=== PATIENT | female | born 1965 | race Caucasian/White ===

== ENCOUNTER 2018-12-14 23:01 | Inpatient (IN) | payer OTHER ==
[2018-12-15 00:07] LABS: ADD MAN DIFF? NO
[2018-12-15 00:09] LABS: WHITE BLOOD COUNT 17.3 10^3/ul (4.8-10.8)
[2018-12-15 00:09] LABS: ABNORMAL IP MESSAGE 1; BASOPHILS % 0.1 % (0.0-2.0); EOSINOPHILS # 0.1 10^3/ul (0.0-0.5); EOSINOPHILS % 0.4 % (0.0-7.0); HEMATOCRIT 14.3 % (37.0-47.0); LYMPHOCYTES # 1.5 10^3/ul (0.8-2.9); LYMPHOCYTES % 8.8 % (15.0-51.0); MEAN CORPUSCULAR HEMOGLOBIN 18.1 pg (29.0-33.0); MEAN CORPUSCULAR HGB CONC 25.9 g/dl (32.0-37.0); MEAN CORPUSCULAR VOLUME 70.1 fl (82.0-101.0); MEAN PLATELET VOLUME 8.2 fl (7.4-10.4); MONOCYTES % 5.6 % (0.0-11.0); NEUTROPHIL # 14.6 10^3/ul (1.6-7.5); NEUTROPHILS % 84.5 % (39.0-77.0); NUCLEATED RED BLOOD CELLS # 0.4 10^3/ul (0.0-0.0); NUCLEATED RED BLOOD CELLS% 2.3 /100WBC (0.0-0.0); PLATELET COUNT 821 10^3/UL (140-415); RED BLOOD COUNT 2.04 10^6/ul (4.20-5.40); RED CELL DISTRIBUTION WIDTH 21.2 % (11.5-14.5)
[2018-12-15] MEDS: ONDANSETRON 4 MG INJ IV (00:10)
[2018-12-15] MEDS: SOD CHLORIDE 0.9% 1,000 ML IV ×2 (00:11→04:38)
[2018-12-15] MEDS: morphine 4 MG/ML VIAL IV ×4 (00:11→21:21)
[2018-12-15 00:19] LABS: HEMOGLOBIN 3.7 g/dl (12.0-16.0); POSITIVE DIFF @See below
[2018-12-15 00:22] LABS: ADD UMIC YES; UR AMORPHOUS CRYSTAL FEW /HPF (NONE SEEN); UR ASCORBIC ACID NEGATIVE (NEGATIVE); UR BACTERIA FEW /HPF (NONE SEEN); UR BILIRUBIN (Dip) NEGATIVE (NEGATIVE); UR BLOOD (Dip) 3+ mg/dL (NEGATIVE); UR CLARITY SLIGHTLY CLOUDY (CLEAR); UR COLOR YELLOW (YELLOW); UR GLUCOSE (Dip) NEGATIVE (NEGATIVE); UR KETONES (Dip) NEGATIVE (NEGATIVE); UR LEUKOCYTE ESTERASE (Dip) TRACE Leu/ul (NEGATIVE); UR MUCUS FEW /HPF (NONE SEEN); UR NITRITE (Dip) NEGATIVE (NEGATIVE); UR RBC > 182 /HPF (0-5); UR SPECIFIC GRAVITY (Dip) 1.017 (1.003-1.030); UR SQUAMOUS EPITHELIAL CELL FEW /HPF (FEW); UR TOTAL PROTEIN (Dip) 1+ mg/dl (NEGATIVE); UR TRANSITIONAL EPI CELL FEW /HPF (NONE SEEN); UR UROBILINOGEN (Dip) 1+ mg/dL (NEGATIVE); UR WBC 7 /HPF (0-5)
[2018-12-15 00:26] LABS: ALANINE AMINOTRANSFERASE 19 IU/L (13-69); ALBUMIN 3.2 g/dl (3.3-4.9); ALBUMIN/GLOBULIN RATIO 0.71; ALKALINE PHOSPHATASE 188 IU/L (42-121); ANION GAP 14 (5-13); ASPARTATE AMINO TRANSFERASE 27 IU/L (15-46); BLOOD UREA NITROGEN 16 mg/dl (7-20); CALCIUM 8.5 mg/dl (8.4-10.2); CARBON DIOXIDE 25 mmol/L (21-31); CHLORIDE 94 mmol/L (97-110); Estimated GFR 47 mL/min (>60); GLUCOSE 154 mg/dl (70-220); LIPASE 38 U/L (23-300); POTASSIUM 3.7 mmol/L (3.5-5.1); SODIUM 133 mmol/L (135-144); TOTAL PROTEIN 7.7 g/dl (6.1-8.1)
[2018-12-15] MEDS: PIPER-TAZO 3.375 GM IV (PMX) 100 ML IVPB ×6 (02:26→23:10)
[2018-12-15] MEDS ORDERED: METOCLOPRAMIDE 10 MG INJ IV (02:30)
[2018-12-15] MEDS ORDERED: NACL 0.9% 3 ML SYG IV (02:30)
[2018-12-15] MEDS ORDERED: ONDANSETRON 4 MG INJ IV (02:30)
[2018-12-15 03:17] LABS: IRON 11 ug/dl (35-150)
[2018-12-15 03:27] LABS: % IRON SATURATION 4 % SAT (22-52); TOTAL IRON BINDING CAPACITY 268 ug/dl (241-421)
[2018-12-15 04:16] LABS: CARCINOEMBRYONIC ANTIGEN 0.8 ng/ml (0.0-5.0)
[2018-12-15 04:17] LABS: FERRITIN 55.3 ng/ml (11.1-264.0)
[2018-12-15 04:20] LABS: CANCER ANTIGEN 19-9 59.6 U/ml (0.0-37.0)
[2018-12-15 04:21] LABS: ALPHA FETOPROTEIN 1.26 IU/L (0.00-7.21)
[2018-12-15] MEDS: morphine 2 MG INJ IV (04:23)
[2018-12-15 05:38] LABS: ADD MAN DIFF? NO
[2018-12-15 05:52] LABS: ABNORMAL IP MESSAGE 1; BASOPHILS % 0.2 % (0.0-2.0); EOSINOPHILS % 0.1 % (0.0-7.0); HEMATOCRIT 20.4 % (37.0-47.0); LYMPHOCYTES # 1.6 10^3/ul (0.8-2.9); LYMPHOCYTES % 9.6 % (15.0-51.0); MEAN CORPUSCULAR HEMOGLOBIN 21.6 pg (29.0-33.0); MEAN CORPUSCULAR HGB CONC 28.4 g/dl (32.0-37.0); MEAN CORPUSCULAR VOLUME 75.8 fl (82.0-101.0); MEAN PLATELET VOLUME 8.4 fl (7.4-10.4); MONOCYTE # 1.2 10^3/ul (0.3-0.9); MONOCYTES % 7.2 % (0.0-11.0); NEUTROPHIL # 13.6 10^3/ul (1.6-7.5); NEUTROPHILS % 82.3 % (39.0-77.0); NUCLEATED RED BLOOD CELLS # 0.2 10^3/ul (0.0-0.0); PLATELET COUNT 776 10^3/UL (140-415); RED BLOOD COUNT 2.69 10^6/ul (4.20-5.40); RED CELL DISTRIBUTION WIDTH 21.7 % (11.5-14.5); RETICULOCYTE COUNT # 0.058 X10^6 (0.020-0.110); RETICULOCYTE COUNT % 2.2 % (0.5-1.5); RETICULOCYTE RBC 2.69
[2018-12-15 05:52] LABS: WHITE BLOOD COUNT 16.5 10^3/ul (4.8-10.8)
[2018-12-15 05:54] LABS: POSITIVE DIFF @See below
[2018-12-15 05:56] LABS: HEMOGLOBIN 5.8 g/dl (12.0-16.0)
[2018-12-15 06:09] LABS: LACTATE DEHYDROGENASE 437 IU/L (313-618)
[2018-12-15 06:24] LABS: IMMEDIATE SPIN CROSSMATCH 1 5
[2018-12-15] MEDS: PANTOPRAZOLE 40 MG INJ IV (06:41)
[2018-12-15] MEDS: FUROSEMIDE 20 MG INJ IV (08:31)
[2018-12-15 09:34] LABS: HEMOGLOBIN 7.1 g/dl (12.0-16.0)
[2018-12-15 09:34] LABS: HEMATOCRIT 24.1 % (37.0-47.0)
[2018-12-15 09:35] LABS: ANISOCYTOSIS 2+ (0-0); GIANT THROMBO% (M) 1 % (0-0); HYPOCHROMASIA 3+ (0-0); LYMPHOCYTES #M 0.6 10^3/ul (0.8-2.9); LYMPHOCYTES % (M) 4 % (15-51); MICROCYTOSIS 2+ (0-0); MONOCYTE #M 1.1 10^3/ul (0.3-0.9); MONOCYTES % (M) 7 % (0-11); PLATELET ESTIMATE INCREASED; POIKILOCYTOSIS 1+ (0-0); POLYCHROMASIA 3+ (0-0); SEGMENTED NEUTROPHILS (M) % 89 % (39-77); TARGET CELLS 1+ (0-0)
[2018-12-15] MEDS: IOHEXOL 14.3 MG(I)/ML (ADULT) BTL PO (09:51)
[2018-12-15 09:59] LABS: LACTATE DEHYDROGENASE 459 IU/L (313-618)
[2018-12-15] MEDS: IODIXANOL LOCM 100 ML BTL (12:15)
[2018-12-15] MEDS: SOD CHLORIDE 0.9% 100 ML (12:15)
[2018-12-15] MEDS: SOD FERRIC GLUC COMPLX 125 MG in SOD CHLORIDE 0.9% 100 ML IVPB (13:39)
[2018-12-15] MEDS: DEXTROSE 5%-0.9% NACL 1,000 ML IV (14:09)
[2018-12-15 14:35] LABS: PROTIME 14.3 Sec (11.9-14.9); PT RATIO 1.1
[2018-12-15 14:36] LABS: PARTIAL THROMBOPLASTIN TIME 42.6 Sec (23.0-35.0)
[2018-12-15 14:45] LABS: HEMATOCRIT 28.4 % (37.0-47.0); HEMOGLOBIN 8.6 g/dl (12.0-16.0)
[2018-12-15] MEDS: ACETAMINOPHEN 325 MG TAB PO (19:43)
[2018-12-15 20:36] LABS: ADD MAN DIFF? NO
[2018-12-15 20:37] LABS: BASOPHIL # 0.1 10^3/ul (0.0-0.1); BASOPHILS % 0.4 % (0.0-2.0); EOSINOPHILS # 0.1 10^3/ul (0.0-0.5); EOSINOPHILS % 1.1 % (0.0-7.0); HEMATOCRIT 28.1 % (37.0-47.0); HEMOGLOBIN 8.6 g/dl (12.0-16.0); LYMPHOCYTES # 1.5 10^3/ul (0.8-2.9); LYMPHOCYTES % 11.2 % (15.0-51.0); MEAN CORPUSCULAR HEMOGLOBIN 23.8 pg (29.0-33.0); MEAN CORPUSCULAR HGB CONC 30.6 g/dl (32.0-37.0); MEAN CORPUSCULAR VOLUME 77.8 fl (82.0-101.0); MEAN PLATELET VOLUME 8.1 fl (7.4-10.4); MONOCYTE # 1.2 10^3/ul (0.3-0.9); NEUTROPHIL # 10.3 10^3/ul (1.6-7.5); NEUTROPHILS % 77.5 % (39.0-77.0); NUCLEATED RED BLOOD CELLS # 0.2 10^3/ul (0.0-0.0); NUCLEATED RED BLOOD CELLS% 1.8 /100WBC (0.0-0.0); PLATELET COUNT 489 10^3/UL (140-415); RED BLOOD COUNT 3.61 10^6/ul (4.20-5.40); RED CELL DISTRIBUTION WIDTH 20.7 % (11.5-14.5)
[2018-12-15 20:37] LABS: WHITE BLOOD COUNT 13.3 10^3/ul (4.8-10.8)
[2018-12-16 01:32] LABS: PROTEIN, TOTAL 6.6 g/dL (6.1-8.1)
[2018-12-16] MEDS: morphine 4 MG/ML VIAL IV ×4 (04:44→17:53)
[2018-12-16 05:03] LABS: ADD MAN DIFF? NO
[2018-12-16 05:11] LABS: WHITE BLOOD COUNT 13.9 10^3/ul (4.8-10.8)
[2018-12-16 05:11] LABS: BASOPHIL # 0.1 10^3/ul (0.0-0.1); BASOPHILS % 0.5 % (0.0-2.0); EOSINOPHILS # 0.2 10^3/ul (0.0-0.5); EOSINOPHILS % 1.3 % (0.0-7.0); HEMATOCRIT 29.6 % (37.0-47.0); HEMOGLOBIN 9.1 g/dl (12.0-16.0); LYMPHOCYTES # 1.2 10^3/ul (0.8-2.9); LYMPHOCYTES % 8.7 % (15.0-51.0); MEAN CORPUSCULAR HEMOGLOBIN 24.1 pg (29.0-33.0); MEAN CORPUSCULAR HGB CONC 30.7 g/dl (32.0-37.0); MEAN CORPUSCULAR VOLUME 78.5 fl (82.0-101.0); MEAN PLATELET VOLUME 8.4 fl (7.4-10.4); MONOCYTE # 1.2 10^3/ul (0.3-0.9); MONOCYTES % 8.3 % (0.0-11.0); NEUTROPHIL # 11.1 10^3/ul (1.6-7.5); NEUTROPHILS % 80.1 % (39.0-77.0); NUCLEATED RED BLOOD CELLS # 0.2 10^3/ul (0.0-0.0); NUCLEATED RED BLOOD CELLS% 1.2 /100WBC (0.0-0.0); PLATELET COUNT 486 10^3/UL (140-415); RED BLOOD COUNT 3.77 10^6/ul (4.20-5.40); RED CELL DISTRIBUTION WIDTH 21.2 % (11.5-14.5)
[2018-12-16] MEDS: PANTOPRAZOLE 40 MG INJ IV (05:13)
[2018-12-16] MEDS: PIPER-TAZO 3.375 GM IV (PMX) 100 ML IVPB ×3 (05:13→17:42)
[2018-12-16 05:21] LABS: HEMOGLOBIN A1C 5.5 % (0-5.9)
[2018-12-16 05:34] LABS: ALANINE AMINOTRANSFERASE 23 IU/L (13-69); ALBUMIN 2.8 g/dl (3.3-4.9); ALKALINE PHOSPHATASE 157 IU/L (42-121); ANION GAP 12 (5-13); ASPARTATE AMINO TRANSFERASE 18 IU/L (15-46); BILIRUBIN,INDIRECT 0.3 mg/dl (0-1.1); BILIRUBIN,TOTAL 0.3 mg/dl (0.2-1.3); BLOOD UREA NITROGEN 14 mg/dl (7-20); CALCIUM 7.7 mg/dl (8.4-10.2); CARBON DIOXIDE 28 mmol/L (21-31); CHLORIDE 99 mmol/L (97-110); CHOL/HDL RATIO 6.4 RATIO; CHOLESTEROL 110 mg/dl (100-200); CREATININE 1.07 mg/dl (0.44-1.00); Estimated GFR 53 mL/min (>60); GLUCOSE 103 mg/dl (70-220); HDL CHOLESTEROL 17 mg/dl (37-92); LDL CHOLESTEROL,CALCULATED 70 mg/dl; MAGNESIUM 2.1 mg/dl (1.7-2.5); POTASSIUM 3.2 mmol/L (3.5-5.1); SODIUM 139 mmol/L (135-144); TOTAL PROTEIN 6.8 g/dl (6.1-8.1); TRIGLYCERIDES 117 mg/dl (0-149)
[2018-12-16] MEDS: DEXTROSE 5%-0.9% NACL 1,000 ML IV ×3 (06:40→16:34)
[2018-12-16] MEDS: POTASSIUM CHLORIDE 100 ML IVPB ×2 (08:15→14:47)
[2018-12-16] MEDS: SOD FERRIC GLUC COMPLX 125 MG in SOD CHLORIDE 0.9% 100 ML IVPB (13:17)
[2018-12-16 13:56] LABS: BETA-2 MICROGLOBULIN 5.64 mg/L (< OR = 2.51)
[2018-12-16 15:32] LABS: ALBUMIN 2.2 g/dL (3.8-4.8); ALPHA-1-GLOBULINS 0.7 g/dL (0.2-0.3); BETA 2 GLOBULINS 0.5 g/dL (0.2-0.5); BETA GLOBULINS 0.5 g/dL (0.4-0.6); GAMMA GLOBULINS 1.7 g/dL (0.8-1.7)
[2018-12-16] MEDS: LIDOCAINE 1% (MPF) 5 ML VIAL SC ×2 (15:45)
[2018-12-16] MEDS: HYDROmorphONE 0.5 MG/0.5 ML SYG IV (20:14)
[2018-12-17] MEDS: PIPER-TAZO 3.375 GM IV (PMX) 100 ML IVPB ×5 (00:22→23:29)
[2018-12-17] MEDS: HYDROmorphONE 0.5 MG/0.5 ML SYG IV ×5 (00:27→19:40)
[2018-12-17 00:41] LABS: CANCER ANTIGEN 15-3 83 U/mL (<32)
[2018-12-17] MEDS: DEXTROSE 5%-0.9% NACL 1,000 ML IV ×2 (03:38→18:22)
[2018-12-17] MEDS: PANTOPRAZOLE 40 MG INJ IV (05:06)
[2018-12-17 05:30] LABS: ADD MAN DIFF? NO
[2018-12-17 05:41] LABS: ABNORMAL IP MESSAGE 1; BASOPHIL # 0.1 10^3/ul (0.0-0.1); BASOPHILS % 0.3 % (0.0-2.0); EOSINOPHILS # 0.1 10^3/ul (0.0-0.5); EOSINOPHILS % 0.9 % (0.0-7.0); HEMATOCRIT 27.5 % (37.0-47.0); HEMOGLOBIN 8.3 g/dl (12.0-16.0); LYMPHOCYTES # 1.5 10^3/ul (0.8-2.9); LYMPHOCYTES % 10.1 % (15.0-51.0); MEAN CORPUSCULAR HEMOGLOBIN 24.1 pg (29.0-33.0); MEAN CORPUSCULAR HGB CONC 30.2 g/dl (32.0-37.0); MEAN CORPUSCULAR VOLUME 79.9 fl (82.0-101.0); MEAN PLATELET VOLUME 8.7 fl (7.4-10.4); MONOCYTE # 1.5 10^3/ul (0.3-0.9); MONOCYTES % 10.3 % (0.0-11.0); NEUTROPHIL # 11.7 10^3/ul (1.6-7.5); NEUTROPHILS % 77.7 % (39.0-77.0); NUCLEATED RED BLOOD CELLS # 0.1 10^3/ul (0.0-0.0); NUCLEATED RED BLOOD CELLS% 0.4 /100WBC (0.0-0.0); PLATELET COUNT 401 10^3/UL (140-415); RED BLOOD COUNT 3.44 10^6/ul (4.20-5.40); RED CELL DISTRIBUTION WIDTH 21.6 % (11.5-14.5)
[2018-12-17 06:05] LABS: ALBUMIN/GLOBULIN RATIO 0.68; ANION GAP 10 (5-13); BILIRUBIN,TOTAL 0.2 mg/dl (0.2-1.3); Estimated GFR > 60 mL/min (>60)
[2018-12-17 06:06] LABS: CARBON DIOXIDE 26 mmol/L (21-31); CHLORIDE 102 mmol/L (97-110); POTASSIUM 3.6 mmol/L (3.5-5.1); SODIUM 138 mmol/L (135-144)
[2018-12-17 06:08] LABS: POSITIVE DIFF @See below
[2018-12-17 06:10] LABS: BLOOD UREA NITROGEN 14 mg/dl (7-20); CALCIUM 7.8 mg/dl (8.4-10.2); CREATININE 0.93 mg/dl (0.44-1.00); GLUCOSE 137 mg/dl (70-220)
[2018-12-17 06:11] LABS: ALANINE AMINOTRANSFERASE 16 IU/L (13-69); ALBUMIN 2.6 g/dl (3.3-4.9); ALKALINE PHOSPHATASE 151 IU/L (42-121); ASPARTATE AMINO TRANSFERASE 19 IU/L (15-46); BILIRUBIN,INDIRECT 0.2 mg/dl (0-1.1); MAGNESIUM 2.2 mg/dl (1.7-2.5); TOTAL PROTEIN 6.4 g/dl (6.1-8.1)
[2018-12-17] MEDS: morphine 4 MG/ML VIAL IV ×3 (06:34→23:29)
[2018-12-17 09:49] LABS: PARTIAL THROMBOPLASTIN TIME 49.6 Sec (23.0-35.0)
[2018-12-17] MEDS: FENTAnyl 50 MCG/ML VIAL (11:10)
[2018-12-17] MEDS: SOD CHLORIDE 0.9% 500 ML (11:11)
[2018-12-17] MEDS: MIDAZOLAM 1 MG/ML 2 ML INJ (11:11)
[2018-12-17] MEDS: LIDOCAINE 1% (MPF) 5 ML VIAL ×2 (11:15→11:18)
[2018-12-17] MEDS: SOD FERRIC GLUC COMPLX 125 MG in SOD CHLORIDE 0.9% 100 ML IVPB (13:47)
[2018-12-17] MEDS: DIATR MEGLU/DIATRIZOATE SODIUM 120 ML BTL (14:47)
[2018-12-17 16:17] LABS: IMMUNOGLOBULIN A 340 mg/dl (70-400)
[2018-12-17 16:37] LABS: IMMUNOGLOBULIN G 1809 mg/dl (700-1600)
[2018-12-17] MEDS: MUPIROCIN 2% 22 GM OINT TOP (21:00)
[2018-12-18] MEDS: HYDROmorphONE 0.5 MG/0.5 ML SYG IV ×5 (01:55→22:01)
[2018-12-18] MEDS: DEXTROSE 5%-0.9% NACL 1,000 ML IV ×2 (05:00→20:39)
[2018-12-18] MEDS: morphine 4 MG/ML VIAL IV ×4 (05:11→20:02)
[2018-12-18] MEDS: PIPER-TAZO 3.375 GM IV (PMX) 100 ML IVPB ×3 (05:37→17:40)
[2018-12-18] MEDS: PANTOPRAZOLE 40 MG INJ IV (05:37)
[2018-12-18] MEDS: MUPIROCIN 2% 22 GM OINT TOP ×2 (10:06→20:38)
[2018-12-18] MEDS: PHENAZOPYRIDINE 100 MG TAB PO ×3 (10:06→20:38)
[2018-12-18] MEDS: POTASSIUM CHLORIDE 100 ML IVPB ×2 (10:12→11:34)
[2018-12-18] MEDS: SOD FERRIC GLUC COMPLX 125 MG in SOD CHLORIDE 0.9% 100 ML IVPB (13:05)
[2018-12-19] MEDS: PIPER-TAZO 3.375 GM IV (PMX) 100 ML IVPB ×5 (00:33→23:37)
[2018-12-19] MEDS: morphine 4 MG/ML VIAL IV ×6 (00:33→20:26)
[2018-12-19] MEDS: HYDROmorphONE 0.5 MG/0.5 ML SYG IV ×6 (02:03→22:39)
[2018-12-19 05:04] LABS: ADD MAN DIFF? NO
[2018-12-19 05:09] LABS: ABNORMAL IP MESSAGE 1; BASOPHIL # 0.1 10^3/ul (0.0-0.1); BASOPHILS % 0.4 % (0.0-2.0); EOSINOPHILS # 0.1 10^3/ul (0.0-0.5); EOSINOPHILS % 0.5 % (0.0-7.0); HEMATOCRIT 28.2 % (37.0-47.0); HEMOGLOBIN 8.2 g/dl (12.0-16.0); LYMPHOCYTES # 1.3 10^3/ul (0.8-2.9); LYMPHOCYTES % 7.3 % (15.0-51.0); MEAN CORPUSCULAR HEMOGLOBIN 23.6 pg (29.0-33.0); MEAN CORPUSCULAR HGB CONC 29.1 g/dl (32.0-37.0); MONOCYTE # 1.4 10^3/ul (0.3-0.9); MONOCYTES % 7.7 % (0.0-11.0); NEUTROPHILS % 83.3 % (39.0-77.0); PLATELET COUNT 340 10^3/UL (140-415); RED BLOOD COUNT 3.48 10^6/ul (4.20-5.40)
[2018-12-19 05:09] LABS: WHITE BLOOD COUNT 18.1 10^3/ul (4.8-10.8)
[2018-12-19 05:27] LABS: ALBUMIN 2.4 g/dl (3.3-4.9); ANION GAP 7 (5-13); BLOOD UREA NITROGEN 17 mg/dl (7-20); CALCIUM 7.9 mg/dl (8.4-10.2); CARBON DIOXIDE 28 mmol/L (21-31); CHLORIDE 106 mmol/L (97-110); CREATININE 0.85 mg/dl (0.44-1.00); GLUCOSE 120 mg/dl (70-220); PHOSPHORUS 3.4 mg/dl (2.5-4.9); POTASSIUM 4.1 mmol/L (3.5-5.1); SODIUM 141 mmol/L (135-144)
[2018-12-19 05:28] LABS: POSITIVE DIFF @See below
[2018-12-19] MEDS: PANTOPRAZOLE 40 MG INJ IV (06:00)
[2018-12-19] MEDS: PHENAZOPYRIDINE 100 MG TAB PO ×3 (08:08→20:26)
[2018-12-19] MEDS: MUPIROCIN 2% 22 GM OINT TOP ×2 (08:09→21:23)
[2018-12-19] MEDS: DEXTROSE 5%-0.9% NACL 1,000 ML IV ×2 (08:09→21:54)
[2018-12-19] MEDS: SOD FERRIC GLUC COMPLX 125 MG in SOD CHLORIDE 0.9% 100 ML IVPB (13:17)
[2018-12-19] MEDS: traZODone 50 MG TAB PO (21:54)
[2018-12-20] MEDS: morphine 4 MG/ML VIAL IV ×5 (00:54→20:19)
[2018-12-20] MEDS: HYDROmorphONE 0.5 MG/0.5 ML SYG IV (01:48)
[2018-12-20] MEDS: FUROSEMIDE 40 MG INJ IV (02:41)
[2018-12-20] MEDS ORDERED: BENZONATATE 100 MG CAP PO (03:00)
[2018-12-20 04:36] LABS: ADD MAN DIFF? NO
[2018-12-20 04:40] LABS: WHITE BLOOD COUNT 21.1 10^3/ul (4.8-10.8)
[2018-12-20 04:40] LABS: ABNORMAL IP MESSAGE 1; BASOPHIL # 0.1 10^3/ul (0.0-0.1); BASOPHILS % 0.4 % (0.0-2.0); EOSINOPHILS # 0.1 10^3/ul (0.0-0.5); EOSINOPHILS % 0.6 % (0.0-7.0); HEMATOCRIT 29.9 % (37.0-47.0); HEMOGLOBIN 8.9 g/dl (12.0-16.0); LYMPHOCYTES # 1.4 10^3/ul (0.8-2.9); LYMPHOCYTES % 6.7 % (15.0-51.0); MEAN CORPUSCULAR HEMOGLOBIN 23.9 pg (29.0-33.0); MEAN CORPUSCULAR HGB CONC 29.8 g/dl (32.0-37.0); MEAN CORPUSCULAR VOLUME 80.4 fl (82.0-101.0); MEAN PLATELET VOLUME 9.4 fl (7.4-10.4); MONOCYTE # 1.3 10^3/ul (0.3-0.9); MONOCYTES % 6.1 % (0.0-11.0); NEUTROPHILS % 85.4 % (39.0-77.0); PLATELET COUNT 342 10^3/UL (140-415); RED BLOOD COUNT 3.72 10^6/ul (4.20-5.40); RED CELL DISTRIBUTION WIDTH 23.1 % (11.5-14.5)
[2018-12-20 04:43] LABS: POSITIVE DIFF @See below
[2018-12-20] MEDS: HYDROmorphONE 1 MG/ML SYG IV ×5 (04:54→22:14)
[2018-12-20 04:57] LABS: ALBUMIN 2.6 g/dl (3.3-4.9); ANION GAP 12 (5-13); BLOOD UREA NITROGEN 15 mg/dl (7-20); CALCIUM 7.8 mg/dl (8.4-10.2); CARBON DIOXIDE 26 mmol/L (21-31); CHLORIDE 100 mmol/L (97-110); CREATININE 0.91 mg/dl (0.44-1.00); GLUCOSE 138 mg/dl (70-220); MAGNESIUM 1.7 mg/dl (1.7-2.5); POTASSIUM 3.7 mmol/L (3.5-5.1); SODIUM 138 mmol/L (135-144)
[2018-12-20] MEDS: DEXTROSE 5%-0.9% NACL 1,000 ML IV ×2 (05:49→13:13)
[2018-12-20] MEDS: PANTOPRAZOLE 40 MG INJ IV (05:49)
[2018-12-20] MEDS: PIPER-TAZO 3.375 GM IV (PMX) 100 ML IVPB ×3 (05:49→17:11)
[2018-12-20 05:57] LABS: ALANINE AMINOTRANSFERASE 10 IU/L (13-69); ALBUMIN 2.6 g/dl (3.3-4.9); ALBUMIN/GLOBULIN RATIO 0.65; ALKALINE PHOSPHATASE 123 IU/L (42-121); ANION GAP 14 (5-13); ASPARTATE AMINO TRANSFERASE 24 IU/L (15-46); BILIRUBIN,INDIRECT 0.3 mg/dl (0-1.1); BILIRUBIN,TOTAL 0.3 mg/dl (0.2-1.3); BLOOD UREA NITROGEN 15 mg/dl (7-20); CALCIUM 7.7 mg/dl (8.4-10.2); CARBON DIOXIDE 27 mmol/L (21-31); CHLORIDE 98 mmol/L (97-110); CREATININE 0.89 mg/dl (0.44-1.00); Estimated GFR > 60 mL/min (>60); GLUCOSE 138 mg/dl (70-220); POTASSIUM 3.8 mmol/L (3.5-5.1); SODIUM 139 mmol/L (135-144); TOTAL PROTEIN 6.6 g/dl (6.1-8.1)
[2018-12-20] MEDS: MUPIROCIN 2% 22 GM OINT TOP ×2 (09:00→20:18)
[2018-12-20] MEDS: ACETAMINOPHEN 325 MG TAB PO (17:12)
[2018-12-21] MEDS: DEXTROSE 5%-0.9% NACL 1,000 ML IV ×4 (00:19→23:20)
[2018-12-21] MEDS: PIPER-TAZO 3.375 GM IV (PMX) 100 ML IVPB ×4 (00:19→17:19)
[2018-12-21] MEDS: morphine 4 MG/ML VIAL IV ×5 (00:20→22:06)
[2018-12-21] MEDS: HYDROmorphONE 1 MG/ML SYG IV ×4 (03:30→20:03)
[2018-12-21] MEDS: PANTOPRAZOLE 40 MG INJ IV (05:15)
[2018-12-21 06:53] LABS: ADD MAN DIFF? NO
[2018-12-21 06:56] LABS: WHITE BLOOD COUNT 23.2 10^3/ul (4.8-10.8)
[2018-12-21 06:56] LABS: ABNORMAL IP MESSAGE 1; BASOPHIL # 0.1 10^3/ul (0.0-0.1); BASOPHILS % 0.3 % (0.0-2.0); EOSINOPHILS # 0.1 10^3/ul (0.0-0.5); EOSINOPHILS % 0.5 % (0.0-7.0); HEMATOCRIT 27.1 % (37.0-47.0); HEMOGLOBIN 7.9 g/dl (12.0-16.0); LYMPHOCYTES # 1.2 10^3/ul (0.8-2.9); LYMPHOCYTES % 5.1 % (15.0-51.0); MEAN CORPUSCULAR HEMOGLOBIN 23.4 pg (29.0-33.0); MEAN CORPUSCULAR HGB CONC 29.2 g/dl (32.0-37.0); MEAN CORPUSCULAR VOLUME 80.4 fl (82.0-101.0); MEAN PLATELET VOLUME 9.1 fl (7.4-10.4); MONOCYTE # 1.2 10^3/ul (0.3-0.9); NEUTROPHIL # 20.5 10^3/ul (1.6-7.5); NEUTROPHILS % 88.2 % (39.0-77.0); PLATELET COUNT 287 10^3/UL (140-415); RED BLOOD COUNT 3.37 10^6/ul (4.20-5.40); RED CELL DISTRIBUTION WIDTH 22.9 % (11.5-14.5)
[2018-12-21 07:04] LABS: POSITIVE DIFF @See below
[2018-12-21 07:38] LABS: ANION GAP 9 (5-13); BLOOD UREA NITROGEN 15 mg/dl (7-20); CALCIUM 7.3 mg/dl (8.4-10.2); CARBON DIOXIDE 28 mmol/L (21-31); CHLORIDE 98 mmol/L (97-110); CREATININE 0.84 mg/dl (0.44-1.00); Estimated GFR > 60 mL/min (>60); GLUCOSE 115 mg/dl (70-220); MAGNESIUM 1.7 mg/dl (1.7-2.5); POTASSIUM 3.4 mmol/L (3.5-5.1); SODIUM 135 mmol/L (135-144)
[2018-12-21] MEDS: MUPIROCIN 2% 22 GM OINT TOP ×2 (09:02→20:03)
[2018-12-21] MEDS: SOD FERRIC GLUC COMPLX 125 MG in SOD CHLORIDE 0.9% 100 ML IVPB (13:02)
[2018-12-22] MEDS: PIPER-TAZO 3.375 GM IV (PMX) 100 ML IVPB ×5 (00:38→23:54)
[2018-12-22] MEDS: HYDROmorphONE 1 MG/ML SYG IV ×6 (00:39→20:53)
[2018-12-22] MEDS: morphine 4 MG/ML VIAL IV ×5 (02:14→20:08)
[2018-12-22] MEDS: DEXTROSE 5%-0.9% NACL 1,000 ML IV ×3 (02:26→19:20)
[2018-12-22] MEDS: PANTOPRAZOLE 40 MG INJ IV (06:06)
[2018-12-22] MEDS ORDERED: MINERAL OIL 133 ML ENEMA PR (07:00)
[2018-12-22 09:06] LABS: PHOSPHORUS 2.6 mg/dl (2.5-4.9)
[2018-12-22 09:06] LABS: MAGNESIUM 1.7 mg/dl (1.7-2.5)
[2018-12-22] MEDS: MUPIROCIN 2% 22 GM OINT TOP ×2 (09:15→20:05)
[2018-12-22] MEDS: MINERAL OIL 133 ML ENEMA PR (12:16)
[2018-12-22] MEDS: SOD FERRIC GLUC COMPLX 125 MG in SOD CHLORIDE 0.9% 100 ML IVPB (13:00)
[2018-12-23] MEDS: HYDROmorphONE 1 MG/ML SYG IV ×4 (00:16→10:59)
[2018-12-23] MEDS: PIPER-TAZO 3.375 GM IV (PMX) 100 ML IVPB ×3 (05:24→18:20)
[2018-12-23] MEDS: PANTOPRAZOLE 40 MG INJ IV (05:24)
[2018-12-23] MEDS: DEXTROSE 5%-0.9% NACL 1,000 ML IV (05:25)
[2018-12-23 06:23] LABS: ADD MAN DIFF? NO
[2018-12-23 06:30] LABS: ABNORMAL IP MESSAGE 1; BASOPHIL # 0.1 10^3/ul (0.0-0.1); BASOPHILS % 0.4 % (0.0-2.0); EOSINOPHILS # 0.1 10^3/ul (0.0-0.5); EOSINOPHILS % 0.4 % (0.0-7.0); HEMATOCRIT 25.2 % (37.0-47.0); HEMOGLOBIN 7.3 g/dl (12.0-16.0); LYMPHOCYTES # 1.2 10^3/ul (0.8-2.9); LYMPHOCYTES % 5.2 % (15.0-51.0); MEAN CORPUSCULAR HEMOGLOBIN 23.2 pg (29.0-33.0); MEAN PLATELET VOLUME 9.7 fl (7.4-10.4); MONOCYTE # 1.4 10^3/ul (0.3-0.9); MONOCYTES % 6.2 % (0.0-11.0); NEUTROPHIL # 19.8 10^3/ul (1.6-7.5); NEUTROPHILS % 86.9 % (39.0-77.0); PLATELET COUNT 385 10^3/UL (140-415); RED BLOOD COUNT 3.15 10^6/ul (4.20-5.40); RED CELL DISTRIBUTION WIDTH 22.6 % (11.5-14.5)
[2018-12-23 06:30] LABS: WHITE BLOOD COUNT 22.8 10^3/ul (4.8-10.8)
[2018-12-23 06:36] LABS: POSITIVE DIFF @See below
[2018-12-23 06:57] LABS: ALANINE AMINOTRANSFERASE 13 IU/L (13-69); ALBUMIN 2.3 g/dl (3.3-4.9); ALBUMIN/GLOBULIN RATIO 0.63; ALKALINE PHOSPHATASE 113 IU/L (42-121); ANION GAP 8 (5-13); ASPARTATE AMINO TRANSFERASE 23 IU/L (15-46); BILIRUBIN,INDIRECT 0.1 mg/dl (0-1.1); BILIRUBIN,TOTAL 0.1 mg/dl (0.2-1.3); BLOOD UREA NITROGEN 12 mg/dl (7-20); CALCIUM 7.3 mg/dl (8.4-10.2); CARBON DIOXIDE 26 mmol/L (21-31); CHLORIDE 100 mmol/L (97-110); CREATININE 0.84 mg/dl (0.44-1.00); Estimated GFR > 60 mL/min (>60); GLUCOSE 120 mg/dl (70-220); POTASSIUM 3.1 mmol/L (3.5-5.1); SODIUM 134 mmol/L (135-144); TOTAL PROTEIN 5.9 g/dl (6.1-8.1)
[2018-12-23] MEDS: MUPIROCIN 2% 22 GM OINT TOP ×2 (07:59→21:04)
[2018-12-23] MEDS: morphine 4 MG/ML VIAL IV ×2 (08:13→11:50)
[2018-12-23] MEDS ORDERED: HYDROmorphONE 2 MG TAB PO (13:00)
[2018-12-23] MEDS ORDERED: POTASSIUM CHLORIDE 50 ML IVPB (13:00)
[2018-12-23] MEDS: SOD FERRIC GLUC COMPLX 125 MG in SOD CHLORIDE 0.9% 100 ML IVPB (13:06)
[2018-12-23] MEDS: POLYETHYLENE GLYCOL 17 GM PACKET PO ×2 (13:36→21:03)
[2018-12-23] MEDS: HYDROmorphONE 2 MG/ML SYG IV ×3 (13:37→21:03)
[2018-12-23] MEDS: POTASSIUM CHLORIDE 20 MEQ/SW 100 ML IVPB ×2 (14:22→16:24)
[2018-12-23] MEDS: LORAZEPAM 2 MG INJ IV (22:36)
[2018-12-24] MEDS ORDERED: NALOXONE (0.4 MG/ML) INJ (00:14)
[2018-12-24 00:15] LABS: AADO2 Arterial 438.1 mmHg (7.0-24.0); Allen Test ACCEPTAB; Arterial Blood Gas Oxygen Sat 95.4 mmHG (95.0-98.0); Arterial Fraction of Oxyhgb 94.3 % (93.0-99.0); Arterial HCO3 23.6 mmol/L (22.0-26.0); Arterial MetHb 0.2 % (0.0-1.5); Arterial pCO2 50.3 mmhg (35-45); MODE MASK - NRB; Site Right Radial
[2018-12-24] MEDS ORDERED: HYDROmorphONE 0.5 MG/0.5 ML SYG (00:35)
[2018-12-24] MEDS: NALOXONE (0.4 MG/ML) INJ IV (00:43)
[2018-12-24] MEDS: HYDROmorphONE 0.5 MG/0.5 ML SYG IV (00:43)
[2018-12-24] MEDS: METHYLPREDNISOLONE 125 MG INJ IV (00:57)
[2018-12-24] MEDS: LORAZEPAM 2 MG INJ IV ×4 (01:07→19:03)
[2018-12-24] MEDS: PIPER-TAZO 3.375 GM IV (PMX) 100 ML IVPB ×2 (01:14→05:51)
[2018-12-24 02:16] LABS: Allen Test ACCEPTAB; Arterial Base Excess -1.9 mmol/L (-3.0-3); Arterial Blood Gas Oxygen Sat 88.8 mmHG (95.0-98.0); Arterial COHb 0.6 % (0.0-3.0); Arterial HCO3 23.8 mmol/L (22.0-26.0); Arterial MetHb 0.3 % (0.0-1.5); MODE HFNC; Site Right Radial
[2018-12-24] MEDS ORDERED: HALOPERIDOL 5 MG INJ (04:04)
[2018-12-24] MEDS ORDERED: FUROSEMIDE 20 MG INJ (04:04)
[2018-12-24] MEDS: FUROSEMIDE 20 MG INJ IV ×2 (04:21)
[2018-12-24] MEDS: HALOPERIDOL 5 MG INJ IM (05:39)
[2018-12-24] MEDS: PANTOPRAZOLE 40 MG INJ IV (05:51)
[2018-12-24 06:49] LABS: ADD MAN DIFF? NO
[2018-12-24 06:55] LABS: WHITE BLOOD COUNT 16.5 10^3/ul (4.8-10.8)
[2018-12-24 06:55] LABS: ABNORMAL IP MESSAGE 1; BASOPHILS % 0.1 % (0.0-2.0); HEMATOCRIT 27.4 % (37.0-47.0); HEMOGLOBIN 7.7 g/dl (12.0-16.0); LYMPHOCYTES # 0.5 10^3/ul (0.8-2.9); MEAN CORPUSCULAR HEMOGLOBIN 23.1 pg (29.0-33.0); MEAN CORPUSCULAR HGB CONC 28.1 g/dl (32.0-37.0); MEAN CORPUSCULAR VOLUME 82.3 fl (82.0-101.0); MEAN PLATELET VOLUME 9.7 fl (7.4-10.4); MONOCYTE # 0.7 10^3/ul (0.3-0.9); MONOCYTES % 4.1 % (0.0-11.0); NEUTROPHIL # 15.3 10^3/ul (1.6-7.5); NEUTROPHILS % 92.4 % (39.0-77.0); PLATELET COUNT 388 10^3/UL (140-415); RED BLOOD COUNT 3.33 10^6/ul (4.20-5.40); RED CELL DISTRIBUTION WIDTH 22.1 % (11.5-14.5)
[2018-12-24 06:58] LABS: POSITIVE DIFF @See below
[2018-12-24 07:27] LABS: ALANINE AMINOTRANSFERASE 15 IU/L (13-69); ALBUMIN 2.3 g/dl (3.3-4.9); ALKALINE PHOSPHATASE 104 IU/L (42-121); ANION GAP 6 (5-13); ASPARTATE AMINO TRANSFERASE 22 IU/L (15-46); BILIRUBIN,INDIRECT 0.1 mg/dl (0-1.1); BILIRUBIN,TOTAL 0.1 mg/dl (0.2-1.3); BLOOD UREA NITROGEN 16 mg/dl (7-20); CALCIUM 7.4 mg/dl (8.4-10.2); CARBON DIOXIDE 24 mmol/L (21-31); CHLORIDE 106 mmol/L (97-110); CREATININE 1.32 mg/dl (0.44-1.00); Estimated GFR 42 mL/min (>60); GLUCOSE 126 mg/dl (70-220); SODIUM 136 mmol/L (135-144); TOTAL PROTEIN 6.1 g/dl (6.1-8.1)
[2018-12-24] MEDS: POLYETHYLENE GLYCOL 17 GM PACKET PO (08:31)
[2018-12-24] MEDS: morphine (DRIP) 100 MG/100 ML 100 ML IV (10:54)
[2018-12-24] MEDS ORDERED: ALBUTEROL/IPRATROPIUM (NEB) 3 ML AMP HHN (14:30)
[2018-12-25] MEDS: LORAZEPAM 2 MG INJ IV ×2 (06:52→12:02)
[2018-12-25] MEDS: ATROPINE 1% 5 ML OPH SL ×2 (06:52→21:36)
[2018-12-25] MEDS: ACETAMINOPHEN 650 MG SUPP PR (11:12)
[2018-12-25] MEDS: SCOPOLAMINE 1.5 MG PATCH TRANSDERM (13:32)
[2018-12-25] MEDS: morphine (DRIP) 100 MG/100 ML 100 ML IV (22:49)
[2018-12-26] MEDS: DIMETHICONE STICK TOP (11:24)
[2018-12-27] MEDS: morphine (DRIP) 100 MG/100 ML 100 ML IV (03:30)
[2018-12-27] MEDS: DIMETHICONE STICK TOP (11:09)
[2018-12-27] MEDS: ARTIFICIAL TEARS 15 ML OPH BOTH EYES (11:09)
[2018-12-27] MEDS: ATROPINE 1% 5 ML OPH SL (16:32)
== END 2018-12-28 01:00 | disposition expired | DRG 754 ==
LOC: E/R 23:01 → TEL 12-20 06:50 → 5EC 12-24 13:32 → ICU 12-15 01:32
PROC: 30233N1 Transfusion of Nonautologous Red Blood Cells into Peripheral Vein, Percutaneous Approach (ICD-10-PCS; principal; 2018-12-15)
PROC: 0D9670Z Drainage of Stomach with Drainage Device, Via Natural or Artificial Opening (ICD-10-PCS; 2018-12-15)
PROC: 02HV33Z Insertion of Infusion Device into Superior Vena Cava, Percutaneous Approach (ICD-10-PCS; 2018-12-16)
PROC: 0W9G3ZZ Drainage of Peritoneal Cavity, Percutaneous Approach (ICD-10-PCS; 2018-12-17)
DX: C55 Malignant neoplasm of uterus, part unspecified (principal); A41.9 Sepsis, unspecified organism; J96.01 Acute respiratory failure with hypoxia; C78.7 Secondary malignant neoplasm of liver and intrahepatic bile duct; C78.02 Secondary malignant neoplasm of left lung; C78.01 Secondary malignant neoplasm of right lung; N39.0 Urinary tract infection, site not specified; N17.9 Acute kidney failure, unspecified; R18.0 Malignant ascites; J91.0 Malignant pleural effusion; K56.600 Partial intestinal obstruction, unspecified as to cause; N13.30 Unspecified hydronephrosis; F15.20 Other stimulant dependence, uncomplicated; D63.0 Anemia in neoplastic disease; B96.4 Proteus (mirabilis) (morganii) as the cause of diseases classified elsewhere; D50.0 Iron deficiency anemia secondary to blood loss (chronic); F11.10 Opioid abuse, uncomplicated; F17.200 Nicotine dependence, unspecified, uncomplicated; N93.9 Abnormal uterine and vaginal bleeding, unspecified; N18.9 Chronic kidney disease, unspecified; I27.20 Pulmonary hypertension, unspecified; I51.7 Cardiomegaly; M43.16 Spondylolisthesis, lumbar region; N13.9 Obstructive and reflux uropathy, unspecified; Z66 Do not resuscitate; Z51.5 Encounter for palliative care; Z59.0 Homelessness
CPT/HCPCS: 36415; 36430; 36569; 36600; 71045; 71260; 74018; 74150; 74176; 74177; 74250; 76830; 76856; 76937; 80048; 80053; 80061; 80069; 81001; 81270; 82105; 82378; 82728; 82784; 82803; 83036; 83540; 83615; 83690; 83735; 84100; 84155; 84165; 84443; 85014; 85018; 85025; 85045; 85335; 85384; 85610; 85730; 86300; 86301; 86304; 86305; 86320; 86850; 86900; 86901; 86920; 87040; 87081; 87086; 88104; 88305; 88313; 88341; 88342; 93306; 96361; 96374; 96375; 99291-25